=== PATIENT | female | born 1950 | race Caucasian/White ===

== ENCOUNTER 2024-01-06 13:06 | Emergency (ER) | payer MEDICARE, SELFPAY ==
[2024-01-06] VITALS (16 sets, daily range): BP systolic 139–204; BP diastolic 69–98; PULSE 73–87
[2024-01-06 15:58] LABS: % Basophils 0.7 % (0-2); % Eosinophils 2.6 % (0-6); % Immature Granulocytes 0.4 % (0-0.5); % Lymphocytes 23.4 % (20.5-51.1); % Monocytes 9.3 % (1.7-9.3); % Neutrophils 63.6 % (42.2-75.2); Absolute Basophils 0.1 10^3/uL (0-0.2); Absolute Eosinophils 0.2 10^3/uL (0-0.7); Absolute Lymphocytes 1.7 10^3/uL (1.2-3.4); Absolute Monocytes 0.7 10^3/uL (0.1-0.6); Absolute Neutrophils 4.7 10^3/uL (1.4-6.5); Hematocrit 37.8 % (37.0-47.0); Hemoglobin 12.8 g/dL (12.0-16.0); Mean Corp Hgb Conc. 33.9 g/dL (33.0-37.0); Mean Corpuscular Hgb 32.8 pg (27.0-31.0); Mean Corpuscular Volume 96.9 fL (81.0-99.0); Mean Platelet Volume 9.6 fL (7.4-10.4); Nucleated Red Blood Cells % 0 %; Platelet Count 274 10^3/uL (130-400); Red Cell Dist. Width 13.2 % (11.5-14.5); White Blood Cell Count 7.4 10^3/uL (4.8-10.8)
[2024-01-06 15:59] LABS: ALT (SGPT) 27 U/L (0-35); AST (SGOT) 33 U/L (14-36); Albumin 4.5 g/dl (3.5-5.0); Alkaline Phosphatase 68 U/L (38-126); Blood Urea Nitrogen 16 mg/dl (7-17); Calcium 10.6 mg/dl (8.4-10.2); Carbon Dioxide 27 mmol/L (22-30); Chloride 100 mmol/L (98-107); Glucose 99 mg/dl (70-99); Sodium 138 mmol/L (135-145); Total Bilirubin 0.8 mg/dl (0.2-1.3); Total Protein 9.4 g/dl (6.3-8.2); eGFR > 60.00
--- NOTE | 2024-01-06 16:02 | ED.GENMED ---
History of Present Illness
<JUSTUS Jarrett - Last Filed: 01/06/24 21:41>
General
Chief Complaint: Dizziness
Source: patient
Exam Limitations: none
Time Seen by Provider: 01/06/24 16:02
Nursing documentation reviewed up to this point in time: agreed with
Travel History
Have you had any contact with someone who has COVID-19?: No
Do you have any symptoms of coronavirus? Fever > 100 degrees, chills, cough, shortness of breath, sore throat, loss of taste or smell, muscle aches, or headache?: No
History of Present Illness
History of Present Illness:
Patient is a 73-year-old female with past with history of hypertension high cholesterol presents to the ER for evaluation of intermittent dizziness, a sensation of lightheadedness and nausea. Patient first had an episode of dizziness 5 days ago
when she had a wound packed. At the time she was laying down when she got up she developed the dizziness. The dizziness lasted about 2 hours. She is very nauseous with this and felt she was in a pass out. She had additional episode 3 days ago
again when the wound was packed however the dizziness only lasted for about an hour after. Today around 11: 30 am she reports she was at a dentist. when she first got up after procedure she felt fine but then 10 minutes after felt the same
feeling of lightheadedness nausea and just not right. Since 1130 this morning she has had symptoms. She had some mild chest pressure. Denies chest pressure ow.
Past History
<JUSTUS Jarrett - Last Filed: 01/06/24 21:41>
Past History
ED Past Medical History: HTN
Social History
Tobacco: Non-smoker
Personal:
Living: with family
Employment: Retired
Review of Systems
<JUSTUS Jarrett - Last Filed: 01/06/24 21:41>
Review of Systems
Allergies reviewed?: Yes
All Other Systems: ROS reviewed and negative except as documented in HPI and ROS
Constitutional: Reports no symptoms; Denies fever, fatigue or chills
EENT: Reports no symptoms
Respiratory: Reports no symptoms
Cardiac: Reports other (chest pressure )
ABD/GI: Reports nausea; Denies vomiting
: Reports no symptoms
Musculoskeletal: Reports no symptoms
Skin: Reports no symptoms
Neurological: Reports no symptoms
Psychiatric: Reports no symptoms
Phy Exam
<JUSTUS Jarrett - Last Filed: 01/06/24 21:41>
General Physical Exam
General Presentation: no apparent distress
General age: appears stated age
General Skin: warm and dry
General Habitus: normal
General Mental: alert
General Hydration: appears well hydrated
Cardiovascular Exam
Cardiovascular Exam: regular rate/rhythm, no murmur and normal peripheral pulses
Pulmonary Exam
Pulmonary Exam: lungs clear and no respiratory distress
Neurological Exam
Neurological Exam: alert and oriented x3
Musculoskeletal Exam
Musculoskeletal Exam: full ROM
Skin Exam
Skin Exam: normal color and warm/dry
Psychiatric Exam
Psychiatric Exam: normal mood/affect
Course
<JUSTUS Jarrett - Last Filed: 01/06/24 21:41>
Orders/Labs/Results
Orders:
Orders
01/06/24 13:07
ECG [Electrocardiogram (*1)] Urgent
Reason for Study: Chest Pain
EKG- Treatment ONCE
01/06/24 15:34
Complete Blood Count/With Diff Urgent
Comprehensive Metabolic Panel Urgent
Prothrombin Time Urgent
Troponin I Urgent
01/06/24 15:37
CT Head W/o Iv Contrast Urgent
Comment:
Reason For Exam: dizziness, hypertensive, numbness
01/06/24 17:59
Meclizine [Antivert] 25 mg PO NOW STA
01/06/24 19:11
IV Insert/Care/Rem.- Treatment PRN
diazePAM [Valium Injection] 2 mg IV NOW STA
Abnormal Lab Results
01/06/24
15:34
RBC 3.90 L 10^6/uL
(4.20-5.40)
MCH 32.8 H pg
(27.0-31.0)
Absolute Monos (auto) 0.7 H 10^3/uL
(0.1-0.6)
Creatinine 0.5 L mg/dL
(0.6-1.0)
Calcium 10.6 H mg/dl
(8.4-10.2)
Total Protein 9.4 H g/dl
(6.3-8.2)
01/06/24 15:34
01/06/24 15:34
Vital Signs
Initial and Last Documented VS:
Initial Vital Signs
Temp Pulse Resp BP Pulse Ox
97.6 F 74 181 204/98 97
01/06/24 13:08 01/06/24 13:08 01/06/24 13:08 01/06/24 13:08 01/06/24 13:08
Last Documented Vital Signs
Temp Pulse Resp BP Pulse Ox
97.6 F 66 16 144/78 96
01/06/24 13:08 01/06/24 21:46 01/06/24 21:46 01/06/24 21:46 01/06/24 21:30
Gun Perforator Loader consulted with Physician
Gun Perforator Loader consulted with physician?: Yes
Name of Physician Consulted: Jeanine
Christinalt;Niko Solorzano DO - Last Filed: 01/06/24 22:25>
Orders/Labs/Results
Orders:
Orders
01/06/24 13:07
ECG [Electrocardiogram (*1)] Urgent
Reason for Study: Chest Pain
EKG- Treatment ONCE
01/06/24 15:34
Complete Blood Count/With Diff Urgent
Comprehensive Metabolic Panel Urgent
Prothrombin Time Urgent
Troponin I Urgent
01/06/24 15:37
CT Head W/o Iv Contrast Urgent
Comment:
Reason For Exam: dizziness, hypertensive, numbness
01/06/24 17:59
Meclizine [Antivert] 25 mg PO NOW STA
01/06/24 19:11
IV Insert/Care/Rem.- Treatment PRN
diazePAM [Valium Injection] 2 mg IV NOW STA
Abnormal Lab Results
01/06/24
15:34
RBC 3.90 L 10^6/uL
(4.20-5.40)
MCH 32.8 H pg
(27.0-31.0)
Absolute Monos (auto) 0.7 H 10^3/uL
(0.1-0.6)
Creatinine 0.5 L mg/dL
(0.6-1.0)
Calcium 10.6 H mg/dl
(8.4-10.2)
Total Protein 9.4 H g/dl
(6.3-8.2)
01/06/24 15:34
01/06/24 15:34
Vital Signs
Initial and Last Documented VS:
Initial Vital Signs
Temp Pulse Resp BP Pulse Ox
97.6 F 74 181 204/98 97
01/06/24 13:08 01/06/24 13:08 01/06/24 13:08 01/06/24 13:08 01/06/24 13:08
Last Documented Vital Signs
Temp Pulse Resp BP Pulse Ox
97.6 F 66 16 144/78 96
01/06/24 13:08 01/06/24 21:46 01/06/24 21:46 01/06/24 21:46 01/06/24 21:30
<JUSTUS Jarrett - Last Filed: 01/06/24 21:41>
MDM/Problems Addressed
Differential Diagnosis Includes:
not limited to: vasovagal syncope , vertigo
MDM/Problems Addressed:
Patient is a 73-year-old female who has had several episodes of intermittent dizziness that occur with changing position. She describes this as feeling very lightheaded dizzy nausea. Last episode happened this morning at dentist office. She stood
up after the procedure but tenderness after the procedure while walking developed the same symptoms. She felt very dizzy here in the ER. She denies the room spinning sensation however on exam by ED physician patient did have symptoms consistent
with vertigo+ Farina-Hallpike. Symptoms seem to occur when patient changes positions suddenly after laying down.
Patient was given meclizine but still felt same symptoms and was given Valium IV.
No recent illness fever chills no recent trauma CAT scan and labs unremarkable. No chest pain no acute findings on EKG.2130: PT feeling better feels well enough to go home. As discussed with ED attending patient also reported she does have some
tinnitus. Will DC with ENT follow-up with meclizine with instructions to return if any worsening of symptoms
Chronic conditions affecting care:
Tinnitus
<JUSTUS Jarrett - Last Filed: 01/06/24 21:41>
*Radiology
Radiology exam reviewed: radiology read reviewed
*Pulse Oximetry
Patient hypoxic: no
*EKG
Interpreted by ED Provider?: Yes
Interpretation: normal
Comparison EKG: no changes
Heart Rate: 69
Rate: normal
Rhythm: sinus
Ischemia: no ischemia
*Critical Care Note
Total Time (30-74mins, 75-104mins- exclusive of procedures): Not Applicable
ED Attending Note
<JUSTUS Jarrett - Last Filed: 01/06/24 21:41>
-
Portions of this chart may have been created with voice recognition software.� Occasional wrong word or��sound alike� substitutions may have occurred due to the inherent limitations of voice recognition software.
<Niko Solorzano DO - Last Filed: 01/06/24 22:25>
ED Attending Note
Patient seen and examined by attending physician: Yes
I performed the substantive portion of visit, reviewed & personally made and approve the management plan that is documented in note by myself or PARVEEN.: Yes
ED Attending Note:
I agree with Bruna's note
Patient presents with episodes of dizziness. After today's episode the sensation of being off has persisted. No nausea or vomiting.
Neurologic exam shows no focal deficits. Hallpike maneuver was positive with head to the left. Presentation seems most consistent with peripheral vertigo. Patient does have ringing in her ear that has been present for some time. Given tinnitus
and now some vertigo which appears peripheral recommend she follow with ENT for further evaluation.
Discharge Plan
Departure
Patient Disposition: Home (Routine Discharge)
Date of Disposition: 01/06/24
Time of Disposition: 21:35
Patient with high blood pressure during this ER visit?: Yes
Condition: Fair
Covid-19: Not Applicable
Discharge Problem:
Vertigo
Instructions: Vertigo (a Type of Dizziness) (DC)
Prescriptions:
New
meclizine 25 mg tablet
25 mg PO TID PRN (Reason: dizziness) Qty: 10 0RF
No Action
hydrochlorothiazide 25 MG tablet
25 mg PO DAILY
cholecalciferol (vitamin D3) [Vitamin D3] 2,000 UNIT capsule
2,000 unit PO DAILY
levofloxacin 500 MG tablet
500 mg PO DAILY 10 Days 0RF
albuterol sulfate [Albuterol Sulfate HFA] 18 GM HFA aerosol inhaler
18 gm IH Q4HPRN PRN (Reason: wheezing) Qty: 1 0RF
Referrals:
Twin Martini MD [Family Provider] -
Giovanny uLcero MD [Active] -
Activity Restrictions/Additional Instructions:
As discussed a prescription for meclizine was sent to your pharmacy take as directed every 8 hours as needed for vertigo some dizziness.
Patient to change positions slowly. Follow-up with family doctor next 7 days as well as lamina searcher!!!
Return if any worsening of symptoms
Interventions
Interventions:
*Risk Screen - Suicide Last Done: 01/06/24 16:35
*General Assessment Last Done: 01/06/24 16:35
*Neglect/Abuse Screening Last Done: 01/06/24 16:35
ED- Fall Risk Assessment Last Done: 01/06/24 17:08
*ED COVID-19 Vaccine History Last Done: 01/06/24 13:08
*Nursing Disposition Last Done: 01/06/24 21:55
ED- Neurological Assessment Last Done: 01/06/24 16:35
ED- Cardiac Assessment Last Done: 01/06/24 16:53
Discharge Date and Time
Discharge Date/Time: 01/06/24 21:55
Print Language: LATVIAN
[2024-01-06 16:11] LABS: Troponin I < 0.012 ng/ml
[2024-01-06 16:16] LABS: PT 13.2 Sec (11.4-14.6)
[2024-01-06] MEDS: ANTIVERT 25 MG PO (18:04)
[2024-01-06] MEDS: VALIUM INJECTION 2 MG IV (19:30)
== END 2024-01-06 21:55 | disposition home or self-care (01) ==
LOC: EMR 13:06
PROVIDERS: Student in an Organized Health Care Education/Training Program; EMERGENCY PHYSICIAN Emergency Medicine; FAMILY PHYSICIAN Family Medicine
DX: R55 Syncope and collapse (principal); H93.19 Tinnitus, unspecified ear; R11.0 Nausea; R07.89 Other chest pain; R42 Dizziness and giddiness; R20.0 Anesthesia of skin; I10 Essential (primary) hypertension; E78.00 Pure hypercholesterolemia, unspecified; G43.909 Migraine, unspecified, not intractable, without status migrainosus; K21.9 Gastro-esophageal reflux disease without esophagitis; F41.9 Anxiety disorder, unspecified; K58.9 Irritable bowel syndrome, unspecified
CPT/HCPCS: 99284; 70450; 80053; 84484; 85025; 85610; 93005

== ENCOUNTER 2024-01-09 12:08 | Emergency (ER) | payer MEDICARE, SELFPAY ==
[2024-01-09 12:18] VITALS: BP 176/97
[2024-01-09 13:17] VITALS: BP 153/74; BMI 27.5
[2024-01-09 13:37] LABS: % Basophils 0.8 % (0-2); % Eosinophils 2.5 % (0-6); % Immature Granulocytes 0.3 % (0-0.5); % Lymphocytes 19.1 % (20.5-51.1); % Monocytes 10.3 % (1.7-9.3); Absolute Basophils 0.1 10^3/uL (0-0.2); Absolute Eosinophils 0.2 10^3/uL (0-0.7); Absolute Lymphocytes 1.4 10^3/uL (1.2-3.4); Absolute Monocytes 0.8 10^3/uL (0.1-0.6); Hematocrit 36.3 % (37.0-47.0); Hemoglobin 12.3 g/dL (12.0-16.0); Mean Corp Hgb Conc. 33.9 g/dL (33.0-37.0); Mean Corpuscular Hgb 33.3 pg (27.0-31.0); Mean Corpuscular Volume 98.4 fL (81.0-99.0); Mean Platelet Volume 9.5 fL (7.4-10.4); Nucleated Red Blood Cells % 0 %; Platelet Count 264 10^3/uL (130-400); Red Blood Cell Count 3.69 10^6/uL (4.20-5.40); Red Cell Dist. Width 13.2 % (11.5-14.5); White Blood Cell Count 7.5 10^3/uL (4.8-10.8)
[2024-01-09 13:48] LABS: ALT (SGPT) 23 U/L (0-35); AST (SGOT) 28 U/L (14-36); Albumin 4.3 g/dl (3.5-5.0); Alkaline Phosphatase 64 U/L (38-126); Blood Urea Nitrogen 26 mg/dl (7-17); Calcium 10.6 mg/dl (8.4-10.2); Carbon Dioxide 28 mmol/L (22-30); Chloride 102 mmol/L (98-107); Estimated Creatinine Clearance 64 ml/min; Glucose 101 mg/dl (70-99); Potassium 4.3 mmol/L (3.5-5.1); Sodium 139 mmol/L (135-145); Total Bilirubin 0.5 mg/dl (0.2-1.3); Total Protein 8.7 g/dl (6.3-8.2); eGFR > 60.00
[2024-01-09 13:59] LABS: Troponin I < 0.012 ng/ml
[2024-01-09 14:00] VITALS: BP 140/67
--- NOTE | 2024-01-09 14:55 | ED.GENMED ---
History of Present Illness
General
Chief Complaint: Chest Pain
Source: patient and spouse
Exam Limitations: none
Time Seen by Provider: 01/09/24 13:59
Nursing documentation reviewed up to this point in time: agreed with except (Patient specifically says she did not have any chest pain which is why she did not call the ambulance and instead drove to the hospital)
Travel History
Have you had any contact with someone who has COVID-19?: No
Do you have any symptoms of coronavirus? Fever > 100 degrees, chills, cough, shortness of breath, sore throat, loss of taste or smell, muscle aches, or headache?: No
History of Present Illness
History of Present Illness:
73-year-old female with a past medical history of hypertension, hyperlipidemia, migraines, vertigo who presents to the emergency room with her for evaluation of arm pain. Patient notably was here in the emergency room 3 days ago for an
episode of vertigo�since discharge she says vertigo has improved today she had no dizziness when she woke up. She presents today to the emergency room for evaluation of arm pain�patient reports that around 8:30 AM she was sitting at the table
drinking coffee and playing [employer] when she suddenly noticed intense pain in the left upper arm radiating down towards her fingertips. She says she also had some radiation towards the left side of her neck/shoulder. She says that she had some mild
associated nausea and palpitations. No vomiting. Patient specifically denies any chest pain. She denies any shortness of breath. She denies any numbness or weakness in her left arm. Denies any headache. She denies any trauma or injury and says
that her symptoms are no worse with movement or palpation. She says that the symptoms were constant for about 5 hours and since then have been very mild and intermittent and mainly limited to the left lateral upper arm. She does note that while
she was having the symptoms she was watching her vital signs and notes that they were somewhat labile with blood pressure occasionally becoming severely elevated and heart rate occasionally shooting as high as 120.
Past History
Past History
ED Past Medical History: HTN
Social History
Tobacco: Non-smoker
Personal:
Living: with family
Employment: Retired
Review of Systems
Review of Systems
All Other Systems: ROS reviewed and negative except as documented in HPI and ROS
Constitutional: Denies fever or chills
EENT: Denies sore throat or runny nose
Respiratory: Denies cough or trouble breathing
Cardiac: Reports palpitations; Denies chest pain
ABD/GI: Reports nausea; Denies abdominal pain, vomiting or diarrhea
Musculoskeletal: Reports muscle pain (Left arm pain) and neck pain; Denies back pain
Neurological: Denies dizzy, headache, weakness or numbness
Phy Exam
Physical Exam
Physical Exam:
General: Awake, alert, oriented x3; no acute distress
Head: Normocephalic, atraumatic
Eyes: Conjunctiva normal, EOMI
Throat: Airway intact, handling secretions
Neck: Trachea midline, supple without meningismus
Lungs: Clear to auscultation bilaterally, no wheezing, rales, rhonchi
Heart: Regular rate and rhythm, no murmurs, gallops, or rubs
Abd: Soft, non distended, nontender
Neuro: Cranial nerves grossly intact, speech fluid; motor and sensory function intact in all extremities�specifically intact radial, median, ulnar nerve distribution left upper extremity
Skin: no rash
Extremities: No edema in extremities, equal pulses in all extremities�specifically strong left radial pulse and brisk capillary refill in the distal left upper extremity; she has no reproducible tenderness in the left arm and is able to move all
joints of the left upper extremity through full active range of motion without reproducing pain
Scores
Heart Failure Risk
Heart Failure Risk Score: Not Applicable
Heart Score for Chest Pain Patients
STEMI patient?: Not applicable
Withdrawal Assessment of Alcohol
Withdrawal Assessment Completed?: Not applicable
Course
Orders/Labs/Results
Orders:
Orders
01/09/24 12:10
EKG [Electrocardiogram (*1)] Urgent
Reason for Study: Chest Pain
EKG- Treatment ONCE
01/09/24 13:24
Complete Blood Count/With Diff Urgent
Comprehensive Metabolic Panel Urgent
Troponin I Urgent
01/09/24 14:57
CR Chest - 2 Views Urgent
Comment:
Reason For Exam: CP
CR Humerus - Left Min 2 Views* Urgent
Comment:
Reason For Exam: left upper arm pain
01/09/24 15:47
CPK [Creatine Phosphokinase] Urgent
01/09/24 16:27
Troponin I Urgent
01/09/24 16:59
EKG [Electrocardiogram (*1)] Urgent
Reason for Study: Chest Pain
EKG- Treatment ONCE
Abnormal Lab Results
01/09/24
13:24
RBC 3.69 L 10^6/uL
(4.20-5.40)
Hct 36.3 L %
(37.0-47.0)
MCH 33.3 H pg
(27.0-31.0)
Absolute Monos (auto) 0.8 H 10^3/uL
(0.1-0.6)
Lymphocytes % 19.1 L %
(20.5-51.1)
Monocytes % 10.3 H %
(1.7-9.3)
BUN 26 H mg/dl
(7-17)
Glucose 101 H mg/dl
(70-99)
Calcium 10.6 H mg/dl
(8.4-10.2)
Total Protein 8.7 H g/dl
(6.3-8.2)
01/09/24 13:24
01/09/24 13:24
Vital Signs
Initial and Last Documented VS:
Initial Vital Signs
Temp Pulse Resp BP Pulse Ox
36.7 C 83 20 176/97 98
01/09/24 12:18 01/09/24 12:18 01/09/24 12:18 01/09/24 12:18 01/09/24 12:18
Last Documented Vital Signs
Temp Pulse Resp BP Pulse Ox
36.7 C 69 20 145/75 95
01/09/24 12:18 01/09/24 17:00 01/09/24 17:00 01/09/24 16:00 01/09/24 17:00
MDM/Problems Addressed
Differential Diagnosis Includes:
Cervical radiculopathy, rotator cuff tendinopathy, referred pain from GERD, referred pain from angina; nothing on exam to suggest claudication/vascular compromise
MDM/Problems Addressed:
73-year-old female presents for evaluation of left arm pain that started this morning and lasted for about 5 hours and since has essentially resolved�still has a very mild upper arm pain that has been intermittent. Hypertensive in triage normalized
by my assessment, rest of vitals normal. Physical exam as documented. EKG no changes. Will plan to place IV send labs including a CBC and a CMP, serial troponins to rule out referred cardiac pain although somewhat lower suspicion as symptoms were
nonexertional and there was no associated chest pain. Will check an x-ray of the humerus and chest as well. Will monitor on telemetry reassess after the above.
Labs reviewed: CBC unremarkable, CMP no clinically significant abnormalities. Troponin undetectable x 1�repeat pending but makes acute DE very unlikely with 5 hours worth of symptoms and undetectable troponin. X-ray of the humerus reviewed by me
shows no acute pathology. Chest x-ray shows no acute pathology but does show large hiatal hernia. I do wonder if perhaps her symptoms could have been referred pain from GI issue given her hiatal hernia and the fact that symptoms started while she
was sitting at the breakfast table drinking coffee. Continue to monitor.
Second troponin is also undetectable patient has remained clinically stable throughout her ED observation which has been greater than 5 hours this point. She has not had any chest pain still some aching in the upper arm but relatively mild. Vital
signs have normalized. Low suspicion for emergent pathology at this point based on full clinical picture, exam, workup as above. Could be referred pain from a GI issue versus muscular pain versus cervical radiculopathy. I think she is stable for
discharge to follow-up with her primary doctor�she feels very comfortable with this plan and in fact says she has an appointment scheduled for Thursday. We did speak in detail about return precautions and all questions were answered.
Chronic conditions affecting care:
Hypertension, hyperlipidemia�higher risk for cardiac disease
Acute Exacerbation and/or Progression of Chronic Illness:
Acutely hypertensive�resolved without intervention continue to monitor but no additional antihypertensive indicated at present
Acute Exacerbation and/or Progression of Chronic Illness: HTN
*Radiology
Radiology exam reviewed: preliminary read by ED provider and radiology read reviewed
*Pulse Oximetry
Patient hypoxic: no
*EKG
Interpreted by ED Provider?: Yes
Comparison EKG: no changes
Heart Rate: 89
Rate: normal
Rhythm: sinus
[place]: normal axis
Interval: normal interval
QRS Pattern: normal QRS
Ischemia: non-specific ST changes
*Critical Care Note
Total Time (30-74mins, 75-104mins- exclusive of procedures): Not Applicable
Data Reviewed
Review of Other/Old Records Reveals: Labs and Records
Source: patient, records and spouse
ED Attending Note
-
Portions of this chart may have been created with voice recognition software.� Occasional wrong word or��sound alike� substitutions may have occurred due to the inherent limitations of voice recognition software.
Discharge Plan
Departure
Patient Disposition: Home (Routine Discharge)
Date of Disposition: 01/09/24
Time of Disposition: 17:40
Patient with high blood pressure during this ER visit?: Yes
Discharge Problem:
Arm pain, left
Instructions: Hiatal Hernia (DC), Radiculopathy (DC)
Prescriptions:
No Action
hydrochlorothiazide 25 MG tablet
25 mg PO DAILY
cholecalciferol (vitamin D3) [Vitamin D3] 2,000 UNIT capsule
5,000 unit PO DAILY
meclizine 25 mg tablet
25 mg PO TID PRN (Reason: dizziness) Qty: 10 0RF
lisinopril 10 mg Tablet
10 mg PO DAILY
Referrals:
Twin Martini MD [Family Provider] - Keep scheduled appt
Activity Restrictions/Additional Instructions:
Thank you for visiting the Emergency Department at [facility].
1. Please schedule a follow up appointment as directed. Call first thing tomorrow morning to make an appointment.
2. If indicated, please take your medications as instructed and indicated on discharge paperwork.
3. If any of your symptoms do not improve, or persist, or become more severe within 6-12 hours, please return to the emergency department for further care.
4. Please return to the emergency department if you develop a headache, neck pain/stiffness, fever greater than 100.4F, chest pain, shortness of breath, persistent nausea, vomiting, slurred speech, difficulty walking, numbness/tingling, weakness,
signs of infection or any other symptoms that are worrisome to you.
Please call [phone] if you have any questions.
Interventions
Interventions:
*Risk Screen - Suicide Last Done: 01/09/24 12:18
*General Assessment Last Done: 01/09/24 13:18
*Neglect/Abuse Screening Last Done: 01/09/24 12:18
ED- Fall Risk Assessment Last Done: 01/09/24 13:18
*ED COVID-19 Vaccine History Last Done: 01/09/24 12:18
ED- Cardiac Assessment Last Done: 01/09/24 13:21
Discharge Date and Time
Print Language: KOSOVAN
[2024-01-09 15:00] VITALS: BP 142/63
[2024-01-09 16:00] VITALS: BP 145/75
[2024-01-09 16:08] LABS: Creatine Phosphokinase 52 U/L (30-135)
[2024-01-09 16:58] LABS: Troponin I < 0.012 ng/ml
== END 2024-01-09 17:54 | disposition home or self-care (01) ==
LOC: EMR 12:08
PROVIDERS: Emergency Medicine; EMERGENCY PHYSICIAN Emergency Medicine; FAMILY PHYSICIAN Family Medicine
DX: M79.622 Pain in left upper arm (principal); R11.0 Nausea; R00.2 Palpitations; M54.2 Cervicalgia; M79.18 Myalgia, other site; K44.9 Diaphragmatic hernia without obstruction or gangrene; I10 Essential (primary) hypertension; E78.5 Hyperlipidemia, unspecified; G43.909 Migraine, unspecified, not intractable, without status migrainosus; Z88.1 Allergy status to other antibiotic agents; Z91.040 Latex allergy status; Z88.0 Allergy status to penicillin; Z88.2 Allergy status to sulfonamides; Z88.8 Allergy status to other drugs, medicaments and biological substances; Z91.048 Other nonmedicinal substance allergy status
CPT/HCPCS: 99285; 71046; 73060; 80053; 82550; 84484; 85025; 93005

== ENCOUNTER → 2024-02-19 14:42 | Outpatient (REF) | payer MEDICARE, SELFPAY | LOC: CLAB 14:42 | PROVIDERS: ATTENDING PHYSICIAN Surgery | DX: L72.3 Sebaceous cyst (principal) | CPT/HCPCS: 88304 ==

== ENCOUNTER 2024-11-27 09:43 | Emergency (ER) | payer MEDICARE, SELFPAY ==
[2024-11-27 09:44] VITALS: BP 159/89
[2024-11-27 10:09] VITALS: BMI 28.5
[2024-11-27 10:22] VITALS: BP 135/63
[2024-11-27 10:27] LABS: % Basophils 0.1 % (0-2); % Eosinophils 2.8 % (0-6); % Immature Granulocytes 0.2 % (0-0.5); % Lymphocytes 8.8 % (20.5-51.1); % Monocytes 7.6 % (1.7-9.3); % Neutrophils 80.5 % (42.2-75.2); Absolute Eosinophils 0.2 10^3/uL (0-0.7); Absolute Lymphocytes 0.7 10^3/uL (1.2-3.4); Absolute Monocytes 0.6 10^3/uL (0.1-0.6); Absolute Neutrophils 6.7 10^3/uL (1.4-6.5); Hematocrit 34.8 % (37.0-47.0); Hemoglobin 11.6 g/dL (12.0-16.0); Mean Corp Hgb Conc. 33.3 g/dL (33.0-37.0); Mean Corpuscular Hgb 33.6 pg (27.0-31.0); Mean Corpuscular Volume 100.9 fL (81.0-99.0); Mean Platelet Volume 10.5 fL (7.4-10.4); Nucleated Red Blood Cells % 0 %; Platelet Count 230 10^3/uL (130-400); Red Blood Cell Count 3.45 10^6/uL (4.20-5.40); Red Cell Dist. Width 13.1 % (11.5-14.5); White Blood Cell Count 8.3 10^3/uL (4.8-10.8)
[2024-11-27 10:39] LABS: ALT (SGPT) 26 U/L (0-35); AST (SGOT) 23 U/L (14-36); Albumin 4.4 g/dl (3.5-5.0); Alkaline Phosphatase 72 U/L (38-126); Blood Urea Nitrogen 16 mg/dl (7-17); Calcium 9.8 mg/dl (8.4-10.2); Carbon Dioxide 29 mmol/L (22-30); Chloride 99 mmol/L (98-107); Estimated Creatinine Clearance 76 ml/min; Glucose 113 mg/dl (70-99); Potassium 3.5 mmol/L (3.5-5.1); Sodium 138 mmol/L (135-145); Total Bilirubin 0.7 mg/dl (0.2-1.3); Total Protein 8.7 g/dl (6.3-8.2); eGFR > 60.00
[2024-11-27] MEDS: NSS 1000 IV (10:40)
[2024-11-27] MEDS: BENADRYL 50 MG IV (10:54)
[2024-11-27] MEDS: SOLU-CORTEF 200 MG IV (10:54)
--- NOTE | 2024-11-27 10:55 | ED.GENMED ---
History of Present Illness
General
Chief Complaint: Abdominal Symptoms
Source: patient
Exam Limitations: none
Time Seen by Provider: 11/27/24 10:07
Nursing documentation reviewed up to this point in time: agreed with
History of Present Illness
History of Present Illness:
Patient is a 73-year-old female w/ hx hypertension, hyperlipidemia, IBS, recent multiple myeloma diagnosis presenting to the emergency department with 1 day of bloody diarrhea and abdominal pain. Patient states that yesterday around 4 PM she
started to feel nauseous and had multiple episodes of diarrhea. She also reports a relatively constant crampy abdominal pain and right lower quadrant diarrhea persisted about every 15 minutes throughout the night. Around 2 AM�patient states she
started to pass small amounts of blood clots with her diarrhea. Diarrhea seem to lessen around 8:30 AM although abdominal pain has persisted.
Patient was recently started on a baby aspirin�no other anticoagulation.
Patient denies any fever, chills, or vomiting. No urinary symptoms.
No sick contacts. No recent undercooked seafood. She did have a Z-Bryce about 1 month ago. No recent hospitalization.
Patient had appendectomy many years ago.
Past History
Past History
ED Past Medical History: HTN
Social History
Tobacco: Non-smoker
Personal:
Living: with family
Employment: Retired
Review of Systems
Review of Systems
Allergies reviewed?: Yes
All Other Systems: ROS reviewed and negative except as documented in HPI and ROS
Phy Exam
Physical Exam
Physical Exam:
Vitals: Hypertensive, otherwise vital signs stable. Afebrile
General: Patient is well appearing, no acute distress. Nontoxic appearing
Skin: Warm and dry, no rashes or lesions
Head: Normocephalic, atraumatic
Eyes: Sclera nonicteric. EOMs intact. No nystagmus.
Throat: Protecting airway
Neck: Normal ROM, no cervical spine tenderness
Cardiac: Regular rate and rhythm, no murmurs.
Pulm: Normal respiratory effort, no wheezes, rales, rhonchi heard on exam.
Abdomen: Abdomen soft. Mild tenderness in right lower abdomen without rebound tenderness or guarding. No CVA tenderness.
Rectal: No stool in vault. No active rectal bleeding. External hemorrhoid, nonthrombosed
Extremities: No evidence of cyanosis or edema. Palpable DP pulses bilaterally
Neuro: AAOx3. Grossly intact.
Psychiatric: Normal affect.
Course
Orders/Labs/Results
Orders:
Orders
11/27/24 10:19
CMP [Comprehensive Metabolic Panel] Urgent
Complete Blood Count/With Diff Urgent
Lipase Urgent
Comment: ADD ON
11/27/24 10:31
0.9% Sodium Chloride 1000 ml [Nss] 1,000 ml IV BOLUS
11/27/24 10:32
Add On- LAB Urgent
Tests Added?: lipase
CT Abd/pelvis W Iv Cont Urgent
Comment:
Reason For Exam: Lower abdominal pain, diarrhea
11/27/24 10:37
Urinalysis Reflex To Culture Urgent
Date Specimen was Collected: 11/27/24
Time Specimen was Collected: 10:35
Urine Microscopic Reflex Cult Urgent
11/27/24 10:45
Diphenhydramine [Benadryl] 50 mg IV NOW STA
Hydrocortisone Sod Succinate [Solu-Cortef] 200 mg IV NOW STA
11/27/24 13:10
LevoFLOXacin [Levaquin] 750 mg PO NOW STA
MetroNIDAZOLE [Flagyl] 500 mg PO NOW STA
Abnormal Lab Results
11/27/24 11/27/24
10:19 10:37
RBC 3.45 L 10^6/uL
(4.20-5.40)
Hgb 11.6 L g/dL
(12.0-16.0)
Hct 34.8 L %
(37.0-47.0)
MCV 100.9 H fL
(81.0-99.0)
MCH 33.6 H pg
(27.0-31.0)
MPV 10.5 H fL
(7.4-10.4)
Absolute Neuts (auto) 6.7 H 10^3/uL
(1.4-6.5)
Absolute Lymphs (auto) 0.7 L 10^3/uL
(1.2-3.4)
Neutrophils % 80.5 H %
(42.2-75.2)
Lymphocytes % 8.8 L %
(20.5-51.1)
Creatinine 0.5 L mg/dL
(0.6-1.0)
Glucose 113 H mg/dl
(70-99)
Total Protein 8.7 H g/dl
(6.3-8.2)
Ur Occult Blood Reflex 1+ A
(Negative)
11/27/24 10:19
11/27/24 10:19
Vital Signs
Initial and Last Documented VS:
Initial Vital Signs
Temp Pulse Resp BP Pulse Ox
97.5 F 96 16 159/89 96
11/27/24 09:44 11/27/24 09:44 11/27/24 09:44 11/27/24 09:44 11/27/24 09:44
Last Documented Vital Signs
Temp Pulse Resp BP Pulse Ox
97.5 F 96 16 134/59 92
11/27/24 09:44 11/27/24 09:44 11/27/24 09:44 11/27/24 12:00 11/27/24 12:45
MDM/Problems Addressed
Differential Diagnosis Includes:
Not limited to: Internal hemorrhoids, external hemorrhoids, diverticulitis, colitis, C. difficile, etc.
MDM/Problems Addressed:
Patient is a 73 year-old female presenting with one day of lower abdominal pain associated with bloody loose stools. No fever, chest pain, shortness of breath, lightheadedness. No anticoagulation. Patient hemodynamically stable with otherwise normal
vital signs. She is afebrile. Physical exam as above. Abdomen soft with mild tenderness in lower abdomen however no rebound tenderness or guarding. Rectal exam reveals no active bleeding or any stool in vault. Differential broad. ED course: plan for
screening labs, stool studies, CT abd/pelvis.
Update: Labs reviewed. No leukocytosis. Hemoglobin fine at 11.6. Chemistry without clinically significant abnormalities. Urine not infected. CT shows findings of diverticulitis without abscess or perforation. Patient has had no active bleeding
since arrival to ED and her hemoglobin is stable. She was unable to provide stool sample. Given patient afebrile with no leukocytosis and pain well controlled feel that she is a good candidate for outpatient antibiotics. First dose given in
emergency department. Return precautions discussed. Patient comfortable with plan.
Chronic conditions affecting care:
History of anemia
Acute Exacerbation and/or Progression of Chronic Illness:
Acute diverticulitis
*Radiology
Radiology exam reviewed: radiology read reviewed
*Pulse Oximetry
Patient hypoxic: no
*EKG
Interpreted by ED Provider?: NA
*Shellacker Interpretation
Rate: Shellacker- N/A
*Critical Care Note
Total Time (30-74mins, 75-104mins- exclusive of procedures): Not Applicable
ED Attending Note
-
Portions of this chart may have been created with voice recognition software.� Occasional wrong word or��sound alike� substitutions may have occurred due to the inherent limitations of voice recognition software.
Discharge Plan
Departure
Patient Disposition: Home (Routine Discharge)
Date of Disposition: 11/27/24
Time of Disposition: 13:11
Patient with high blood pressure during this ER visit?: Yes
Condition: Good
Covid-19: Not Applicable
Discharge Problem:
Acute diverticulitis
Instructions: Diverticulitis - Discharge instructions, Clear Liquid Diet, BLOOD PRESSURE
Prescriptions:
New
levofloxacin 750 mg tablet
750 mg PO DAILY 10 Days Qty: 10 0RF
metronidazole 500 mg tablet
500 mg PO TID 10 Days Qty: 30 0RF
No Action
hydrochlorothiazide 25 MG tablet
25 mg PO DAILY
cholecalciferol (vitamin D3) [Vitamin D3] 2,000 UNIT capsule
5,000 unit PO DAILY
meclizine 25 mg tablet
25 mg PO TID PRN (Reason: dizziness) Qty: 10 0RF
lisinopril 10 mg Tablet
10 mg PO DAILY
Referrals:
Twin Martini MD [Family Provider] - Follow up in 5-7 days
Activity Restrictions/Additional Instructions:
RETURN TO THE EMERGENCY DEPARTMENT ANY FEVER, CHILLS, WORSENING/PERSISTENT ABDOMINAL PAIN, INTRACTABLE NAUSEA/VOMITING, RECTAL BLEEDING, SIGNS OF SEVERE DEHYDRATION, OR ANY OTHER CONCERNS
- As discussed�your CT scan showed evidence of uncomplicated diverticulitis. You were given your first dose of antibiotics in the emergency department, Levaquin and Flagyl. The remainder of the prescription has been sent to your pharmacy. You
should take these as directed on the bottle for 10 days. You should not drink any alcohol while taking metronidazole.
- I would recommend a clear liquid diet for the next 2 days and slowly advance as tolerated to low fiber. It is important to stay well-hydrated. Take Tylenol as needed for pain.
- Follow-up with your primary care for further evaluation/management next week to ensure that symptoms are improving.
Monitor your symptoms closely and return to the emergency department with any acute worsening/new symptoms or any signs of worsening infection.
Interventions
Interventions:
*Risk Screen - Suicide Last Done: 11/27/24 10:09
*General Assessment Last Done: 11/27/24 10:09
*Neglect/Abuse Screening Last Done: 11/27/24 10:09
*ED- Fall Risk Assessment Last Done: 11/27/24 10:09
*ED COVID-19 Vaccine History Last Done: 11/27/24 10:09
*Nursing Disposition Last Done: 11/27/24 13:31
RX-Xlwaeh-Izrdmieayo Assessment Last Done: 11/27/24 10:09
Discharge Date and Time
Discharge Date/Time: 11/27/24 13:31
Print Language: NEPALI
[2024-11-27 11:00] VITALS: BP 141/67
[2024-11-27 11:12] LABS: Lipase 60 U/L (23-300)
[2024-11-27 11:19] LABS: Urine Albumin Negative (Neg - Trace); Urine Bilirubin Negative (Negative); Urine Character Clear (Clear); Urine Color Yellow; Urine Glucose Negative (Negative); Urine Ketone Negative (Negative); Urine Leukocyte Negative (Negative); Urine Nitrite Negative (Negative); Urine Occult Blood 1+ (Negative); Urine Urobilinogen Negative (Neg - 1+); Urine pH 6.5 (5.0-9.0)
[2024-11-27 11:35] LABS: Urine Red Blood Cell 0-2 /HPF (0-2); Urine Squamous Cell 0-2 /LPF (Few); Urine White Cell 0-2 /HPF (0-5)
[2024-11-27 12:00] VITALS: BP 134/59
[2024-11-27] MEDS: LEVAQUIN 750 MG PO (13:25)
[2024-11-27] MEDS: FLAGYL 500 MG PO (13:25)
== END 2024-11-27 13:31 | disposition home or self-care (01) ==
LOC: EMR 09:43
PROVIDERS: Physician Assistant; EMERGENCY PHYSICIAN Emergency Medicine; FAMILY PHYSICIAN Family Medicine; OTHER PHYSICIAN Internal Medicine
DX: K57.32 Diverticulitis of large intestine without perforation or abscess without bleeding (principal); I10 Essential (primary) hypertension; E78.5 Hyperlipidemia, unspecified; K58.9 Irritable bowel syndrome, unspecified; C90.00 Multiple myeloma not having achieved remission
CPT/HCPCS: 99285; 96374; 96375; 96361; 74177; 80053; 81003; 81015; 83690; 85025; Q9967